=== PATIENT | female | born 1960 | race Caucasian/White ===

== ENCOUNTER 2016-11-08 22:57 | Emergency (ER) | payer MEDICAID ==
[2016-11-08] MEDS ORDERED: NS 1,000 ML IV ONE (23:04)
--- NOTE | 2016-11-08 23:06 | EDPHY ---
H & P HPI/ROS: HPI CHIEF COMPLAINT: Abdominal pain HISTORY OF PRESENT ILLNESS: This patient very pleasant 56-year-old female she denies having any significant medical history or surgical history does not take any daily medications, she is homeless, she presents by EMS to the emergency room from the homeless senior living for intermittent abdominal pain she describes as achy stabbing pain mainly located right lower quadrant right upper quadrant mid abdomen. It comes and goes. No vomiting. No diarrhea. She does admit to constipation. No fever. No history of gallstones or abdominal surgeries. She denies chest pain or shortness of breath. In route by EMS she was given 75 mcg of IV fentanyl. This improved her pain upon arrival to the emergency room she denies having any abdominal pain. She denies abdominal trauma. Past Medical History: Denies medical history Past Surgical History: Denies surgical history Social History: Smokes tobacco regularly, marijuana regularly, denies other illicit drugs or alcohol. Homeless. Family History: Noncontributory ROS REVIEW OF SYSTEMS: A comprehensive 10 point review of systems is otherwise negative aside from elements mentioned in the history of present illness. Exam Constitutional triage nursing summary reviewed, vital signs reviewed, awake/ alert. Eyes normal conjunctivae and sclera, EOMI, PERRLA. HENT normal inspection, atraumatic, moist mucus membranes, no epistaxis, neck supple/ no meningismus, no raccoon eyes. Respiratory clear to auscultation bilaterally, normal breath sounds, no respiratory distress, no wheezing. Cardiovascular rate normal, regular rhythm, no murmur, no edema, distal pulses normal. Gastrointestinal soft, mild tender palpation right upper quadrant also mild tender palpation right lower quadrant , no rebound, no guarding, normal bowel sounds, no distension, no pulsatile mass. Genitourinary no CVA tenderness. Musculoskeletal no midline vertebral tenderness, full range of motion, no calf swelling, no tenderness of extremities, no meningismus, good pulses, neurovascularly intact. Skin pink, warm, & dry, no rash, skin atraumatic. Neurologic awake, alert and oriented x 3, AAOx3, moves all 4 extremities equally, motor intact, sensory intact, CN II-XII intact, normal cerebellar, normal vision, normal speech. Psychiatric normal mood/affect. Heme/Lymph/Immune no lymphadenopathy. Differential diagnosis includes but is not limited to and in no particular order : Bowel obstruction, appendicitis, gallbladder disease, diverticulitis, colitis , enteritis, perforated viscus, gastritis, GERD, esophagitis, urinary tract infection, pyelonephritis, kidney stones Medical Decision Making: Plan for this patient IV establishment, IV fluid bolus , abdominal blood work, CT abdomen pelvis with IV contrast rule out acute appendicitis. And re-evaluation. Re-evaluation: CT scan of the abdomen pelvis with/out contrast. The results of the study are constipated. The study was read by Dr. Barth I viewed the images myself on the PACS system. EKG interpretation by me on record in [employer] system. Impression time of EKG 2342, this is sinus rhythm rate of 69 no acute ischemic changes appreciated. Unremarkable EKG. Ultrasound of the right upper quadrant. The results of the study are negative for acute gallstones or cholecystitis, there are gallbladder polyps however below the size that needs followed up. Please see formal report.. I discussed the results of this study with the radiologist Dr. Shafer [id number]: Re-evaluation at this time. Patient is resting comfortably no acute distress. Abdomen soft nontender. No vomiting. Blood work, CT and ultrasound of her reviewed nothing acute. Unclear what caused her severe crampy right upper quadrant pain. She has no chest pain shortness of breath. EKG nonischemic negative troponin. Unremarkable blood work. Given that she appears well nontoxic her abdomen is soft nontender she is not vomiting here allowed to be discharged however she understands she should return emergency room she develops any worsening symptoms includes abdominal pain, fever, vomiting. Source: Patient, EMS Constitutional: Initial Vital Signs Temperature (C) 36.7 C 11/08/16 22:57 Heart Rate 67 11/08/16 22:57 Respiratory Rate 16 11/08/16 22:57 Blood Pressure 126/70 H 11/08/16 22:57 O2 Sat (%) 94 11/08/16 22:57 O2 Delivery Mode Room Air Allergies/Adverse Reactions: chicken derived Allergy (Verified 11/08/16 23:20) Tetanus Vaccines and Toxoid Allergy (Verified 11/08/16 23:20) Home Medications: Medication Instructions Recorded NK [No Known Home Meds] 11/08/16 Medical Decision Making - Diagnostics Imaging Results: Imaging Impressions Abdomen/Pelvis CT 11/08/16 23:04 Impression: 1. No nephrolithiasis or hydronephrosis. 2. No evidence of appendicitis. 3. Constipation. 4. No bowel obstruction or pneumoperitoneum. 5. Degenerative lumbar spine. Attention: This CT examination is specifically designed to evaluate patients who are clinically suspected of having acute obstructive uropathy. This examination does not use radiographic contrast, and as such, provides only a limited evaluation of the abdomen, pelvis and retroperitoneum. If there is further clinical suspicion for pathological conditions other than obstructive uropathy, a complete CT evaluation of the abdomen and pelvis utilizing intravenous, oral, and rectal contrast should be considered. Findings and recommendations discussed with Emergency Department physician, Elias Weems MD at 2340 hour, 11/08/2016. Final report concurs with initial preliminary interpretation. - Data Points Laboratory Results: Laboratory Results 11/08/16 23:10 11/08/16 23:10 11/09/16 11/08/16 11/08/16 00:40 23:10 23:10 WBC RBC Hgb Hct MCV MCH MCHC RDW Plt Count MPV Neut % (Auto) Lymph % (Auto) Letcher % (Auto) Eos % (Auto) Baso % (Auto) Nucleat RBC Rel Count Absolute Neuts (auto) Absolute Lymphs (auto) Absolute Monos (auto) Absolute Eos (auto) Absolute Basos (auto) Absolute Nucleated RBC Immature Gran % Immature Gran # PT 12.6 SEC SEC (12.0-15.0) INR 0.95 (0.83-1.16) APTT 26.1 SEC SEC (23.0-38.0) VBG Lactic Acid Sodium 144 mEq/L mEq/L (134-144) Potassium 4.3 mEq/L mEq/L (3.5-5.2) Chloride 103 mEq/L mEq/L (97-110) Carbon Dioxide 29 mEq/l mEq/l (22-31) Anion Gap 12 mEq/L mEq/L (8-16) BUN 24 mg/dL H mg/dL (7-23) Creatinine 1.1 mg/dL H mg/dL (0.6-1.0) Estimated GFR 52 Glucose 86 mg/dL mg/dL (70-100) Calcium 9.5 mg/dL mg/dL (8.5-10.4) Total Bilirubin 0.7 mg/dL mg/dL (0.1-1.4) Conjugated Bilirubin 0.3 mg/dL mg/dL (0.0-0.5) Unconjugated Bilirubin 0.4 mg/dL mg/dL (0.0-1.1) AST 33 IU/L IU/L (14-46) ALT 36 IU/L IU/L (9-52) Alkaline Phosphatase 154 IU/L H IU/L (38-126) Troponin I < 0.012 ng/mL ng/mL (0-0.034) Total Protein 8.0 g/dL g/dL (6.3-8.2) Albumin 4.5 g/dL g/dL (3.5-5.0) Lipase 107.0 IU/L IU/L (23-300) Urine Color YELLOW Urine Appearance CLEAR Urine pH 6.0 (5.0-7.5) Ur Specific [place] 1.020 (1.002-1.030) Urine Protein NEGATIVE (NEGATIVE) Urine Ketones NEGATIVE (NEGATIVE) Urine Blood 1+ H (NEGATIVE) Urine Nitrate NEGATIVE (NEGATIVE) Urine Bilirubin NEGATIVE (NEGATIVE) Urine Urobilinogen NEGATIVE EU EU (0.2-1.0) Ur Leukocyte Esterase NEGATIVE (NEGATIVE) Urine RBC 3-5 /hpf H /hpf (0-3) Urine WBC NONE SEEN /hpf /hpf (0-3) Ur Epithelial Cells NONE SEEN /lpf /lpf (NONE-1+) Urine Mucus TRACE /lpf /lpf (NONE-1+) Urine Glucose NEGATIVE (NEGATIVE) 11/08/16 11/08/16 23:10 23:10 WBC 10.05 10^3/uL H 10^3/uL (3.80-9.50) RBC 5.09 10^6/uL 10^6/uL (4.18-5.33) Hgb 15.6 g/dL g/dL (12.6-16.3) Hct 47.4 % H % (38.0-47.0) MCV 93.1 fL fL (81.5-99.8) MCH 30.6 pg pg (27.9-34.1) MCHC 32.9 g/dL g/dL (32.4-36.7) RDW 12.9 % % (11.5-15.2) Plt Count 238 10^3/uL 10^3/uL (150-400) MPV 9.3 fL fL (8.7-11.7) Neut % (Auto) 68.9 % % (39.3-74.2) Lymph % (Auto) 22.3 % % (15.0-45.0) Letcher % (Auto) 6.8 % % (4.5-13.0) Eos % (Auto) 1.3 % % (0.6-7.6) Baso % (Auto) 0.4 % % (0.3-1.7) Nucleat RBC Rel Count 0.0 % % (0.0-0.2) Absolute Neuts (auto) 6.93 10^3/uL H 10^3/uL (1.70-6.50) Absolute Lymphs (auto) 2.24 10^3/uL 10^3/uL (1.00-3.00) Absolute Monos (auto) 0.68 10^3/uL 10^3/uL (0.30-0.80) Absolute Eos (auto) 0.13 10^3/uL 10^3/uL (0.03-0.40) Absolute Basos (auto) 0.04 10^3/uL 10^3/uL (0.02-0.10) Absolute Nucleated RBC 0.00 10^3/uL 10^3/uL (0-0.01) Immature Gran % 0.3 % % (0.0-1.1) Immature Gran # 0.03 10^3/uL 10^3/uL (0.00-0.10) PT INR APTT VBG Lactic Acid 1.9 mmol/L mmol/L (0.7-2.1) Sodium Potassium Chloride Carbon Dioxide Anion Gap BUN Creatinine Estimated GFR Glucose Calcium Total Bilirubin Conjugated Bilirubin Unconjugated Bilirubin AST ALT Alkaline Phosphatase Troponin I Total Protein Albumin Lipase Urine Color Urine Appearance Urine pH Ur Specific [place] Urine Protein Urine Ketones Urine Blood Urine Nitrate Urine Bilirubin Urine Urobilinogen Ur Leukocyte Esterase Urine RBC Urine WBC Ur Epithelial Cells Urine Mucus Urine Glucose Departure - Departure Disposition: Home, Routine, Self-Care Clinical Impression: Abdominal pain Qualifiers: Abdominal location: right upper quadrant Qualified Code(s): R10.11 - Right upper quadrant pain Condition: Good Instructions: Acute Abdominal Pain (ED) Additional Instructions: 1. Trigg diet for next 24-48 hours. 2. Return emergency room if develops worsening abdominal pain fever vomiting. Referrals: Patient,NotPresent [Unknown] - As per Instructions
[2016-11-08 23:23] VITALS: RESP 16; O2SAT 94
[2016-11-08 23:25] LABS: % IMMATURE GRANULYOCYTES 0.3 % (0.0-1.1); ABSOLUTE IMMATURE GRANULOCYTES 0.03 10^3/uL (0.00-0.10); ADD DIFF? NO; ADD MORPH? NO; ADD SCAN? NO; ATYPICAL LYMPHOCYTE FLAG 0 (0-99); FRAGMENT RBC FLAG 0 (0-99); HEMATOCRIT 47.4 % (38.0-47.0); HEMOGLOBIN 15.6 g/dL (12.6-16.3); LEFT SHIFT FLG 0 (0-99); LIPEMIA HEMOLYSIS FLAG 80 (0-99); MEAN CELL HEMOGLOBIN 30.6 pg (27.9-34.1); MEAN CELL HEMOGLOBIN CONCENTR. 32.9 g/dL (32.4-36.7); MEAN CELL VOLUME 93.1 fL (81.5-99.8); MEAN PLATELET VOLUME 9.3 fL (8.7-11.7); PLATELET CLUMPS FLAG 10 (0-99); PLATELET COUNT 238 10^3/uL (150-400); RED BLOOD CELL COUNT 5.09 10^6/uL (4.18-5.33); RED CELL DISTRIBUTION WIDTH 12.9 % (11.5-15.2)
[2016-11-08 23:37] LABS: ALANINE AMINOTRANSFERASE 36 IU/L (9-52); ALBUMIN 4.5 g/dL (3.5-5.0); ALKALINE PHOSPHATASE 154 IU/L (38-126); ANION GAP 12 mEq/L (8-16); ASPARTATE AMINOTRANSFERASE 33 IU/L (14-46); BILIRUBIN,TOTAL 0.7 mg/dL (0.1-1.4); BILIRUBIN-CONJUGATED 0.3 mg/dL (0.0-0.5); BILIRUBIN-UNCONJUGATED 0.4 mg/dL (0.0-1.1); CALCIUM 9.5 mg/dL (8.5-10.4); CARBON DIOXIDE 29 mEq/l (22-31); CHLORIDE 103 mEq/L (97-110); CREATININE 1.1 mg/dL (0.6-1.0); GLOMERULAR FILTRATION RATE 52; GLUCOSE 86 mg/dL (70-100); POTASSIUM 4.3 mEq/L (3.5-5.2); SODIUM 144 mEq/L (134-144)
--- NOTE | 2016-11-08 23:48 | CPEKG ---
Heart Rate: 69 RR Interval: 870 P-R Interval: 132 QRSD Interval: 76 QT Interval: 408 QTC Interval: 437 P Pearcy: 65 QRS Pearcy: 82 T Wave Pearcy: 68 EKG Severity - NORMAL ECG - EKG Impression: SINUS RHYTHM Electronically Signed By: Elias Weems 09-Nov-2016 06:52:36
[2016-11-08 23:49] LABS: TROPONIN I < 0.012 ng/mL (0-0.034)
[2016-11-09 00:16] LABS: INR 0.95 (0.83-1.16); PROTIME(PATIENT) 12.6 SEC (12.0-15.0)
[2016-11-09 00:17] LABS: APTT 26.1 SEC (23.0-38.0)
[2016-11-09 01:12] LABS: COLOR YELLOW; LEUKOCYTE ESTERASE,URINE NEGATIVE (NEGATIVE); NITRITE,URINE NEGATIVE (NEGATIVE)
[2016-11-09 01:17] LABS: MUCUS TRACE /lpf (NONE-1+)
[2016-11-09 01:19] LABS: WBC,URINE NONE SEEN /hpf (0-3)
[2016-11-09 01:45] VITALS: BP 123/65; PULSE 73; TEMP 97.9
== END 2016-11-09 01:46 | disposition home or self-care (01) ==
DX: R10.11 Right upper quadrant pain (principal); F17.290 Nicotine dependence, other tobacco product, uncomplicated

== ENCOUNTER 2016-11-29 13:34 | Emergency (ER) | payer MEDICAID ==
[2016-11-29 13:41] VITALS: RESP 20; TEMP 98.4
--- NOTE | 2016-11-29 14:50 | EDPHY ---
H & P Time Seen by Provider: 11/29/16 14:29 Smoking Status: Never smoked Constitutional: Initial Vital Signs Temperature (C) 36.9 C 11/29/16 13:38 Heart Rate 65 11/29/16 13:38 Respiratory Rate 20 11/29/16 13:38 Blood Pressure 98/53 L 11/29/16 13:38 O2 Sat (%) 95 11/29/16 13:38 O2 Delivery Mode Room Air Allergies/Adverse Reactions: chicken derived Allergy (Verified 11/29/16 13:38) Tetanus Vaccines and Toxoid Allergy (Verified 11/29/16 13:38) Home Medications: Medication Instructions Recorded NK [No Known Home Meds] 11/08/16 MDM/Departure - MDM Imaging Results: Imaging Impressions Wrist X-Ray 11/29/16 13:41 Impression: Negative for fracture. - Depart
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
[2016-11-29 15:19] VITALS: BP 126/80; PULSE 78; O2SAT 94
== END 2016-11-29 15:13 | disposition home or self-care (01) ==
DX: S63.501A Unspecified sprain of right wrist, initial encounter (principal); L03.113 Cellulitis of right upper limb; X58.XXXA Exposure to other specified factors, initial encounter
CPT/HCPCS: L3908

== ENCOUNTER 2017-12-09 17:26 | Emergency (ER) | payer MEDICAID ==
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
[2017-12-09] MEDS ORDERED: ACETAMINOPHEN 500 MG TAB PO ONE (18:44)
[2017-12-09 19:42] VITALS: BP 134/80
== END 2017-12-09 19:34 | disposition home or self-care (01) ==
LOC: EDUNIT#
DX: S86.911A Strain of unspecified muscle(s) and tendon(s) at lower leg level, right leg, initial encounter (principal); F17.200 Nicotine dependence, unspecified, uncomplicated; Y00.XXXA Assault by blunt object, initial encounter; Y99.8 Other external cause status; Y93.89 Activity, other specified
CPT/HCPCS: L1830

== ENCOUNTER 2018-07-05 19:12 | Emergency (ER) | payer MEDICAID ==
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
[2018-07-05] MEDS ORDERED: HYDROCOD/APAP 5/325 PREPACK#6 BTL TAKEHOME ONE (20:28)
[2018-07-05 20:42] VITALS: BP 118/61
== END 2018-07-05 21:06 | disposition home or self-care (01) ==
LOC: EDUNIT#
DX: S02.2XXA Fracture of nasal bones, initial encounter for closed fracture (principal); Z59.0 Homelessness; Y04.8XXA Assault by other bodily force, initial encounter; Y92.9 Unspecified place or not applicable; Y93.9 Activity, unspecified; Y99.9 Unspecified external cause status

== ENCOUNTER 2018-09-29 18:23 | Emergency (ER) | payer MEDICAID ==
--- NOTE | 2018-09-29 18:41 | EDPHY ---
General - History Smoking Status: Current every day smoker Time Seen by Provider: 09/29/18 18:26 Narrative: CLINICAL IMPRESSION: Suicidal ideations, M1 hold ASSESSMENT/PLAN: 58-year-old homeless female presents to the emergency department on an M1 hold from the walk-in center at [facility] after reporting that she was feeling suicidal. Patient had active attempted suicide by cutting her right wrist 2 days ago and relayed to me that if this did not work, she would slice her throat. She denies hallucinations and delusions. She is mildly agitated but cooperative. She denies illicit drug and alcohol use tonight and urine drug skin is clear aside from marijuana. She was medically cleared and awaiting bed placement by [facility]. Given Tylenol for headache. No focal neurological deficits. Will likely sign out to Dr. Coronado at 0100 pending bed placement DIFFERENTIAL DX: Differential includes but not limited to, acute/chronic psychosis, severe depression, suicidal or homicidal ideations, grave disability, failure to thrive , medication noncompliance, medication side effect, alcohol intoxication and illicit drug use, metabolic disturbance, electrolyte imbalance ED PROCEDURES: See lab and/or imaging results below ED COURSE: 6:30 p.m.: Patient seen and assessed by myself. Currently cooperative, mildly agitated but not aggressive, on an M1 hold by [facility] who is apparently conducting a bed search. 8:30 p.m.: Labs back. Notable for marijuana, no other drugs, alcohol 0. Patient is medically cleared. Bed search currently underway by [facility]. CHIEF COMPLAINT: M1 hold, med clearance HPI: 58-year-old homeless female presents to the emergency department from the walk- in clinic at [facility], on an M1 hold for suicidal thoughts and delusional behavior. Patient tells me she is not actively suicidal however shows me a self-inflicted right wrist laceration that occurred 2 days ago and reports to me "if that did not work and then this" followed by a movement of slicing her neck with a knife. She tells me she is not actively suicidal or homicidal. It sounds as though she has been feeling this way after learning her housing situation fell through. She denies hallucinations and delusions. She denies alcohol and illicit drugs. She does not currently take any medications. But has a reported history of anxiety. She has no physical complaints and states "there are things I have been struggling with but nothing you can help me with today". She is requesting a soda to drink. PAST MEDICAL HISTORY: History of anxiety See nurse/triage notes for additional history if applicable Pertinent Past Surgical History: None reported Family History: Noncontributory Social History: Homeless, daily smoker, states she is allergic to tetanus REVIEW OF SYSTEMS: All other systems negative Constitutional: No fever, no chills, appetite change. Eyes: No discharge, vision change ENT: No sore throat, congestion, ear pain. Cardiovascular: No chest pain, no palpitations. Respiratory: No cough, no shortness of breath. Gastrointestinal: No abdominal pain, no vomiting, diarrhea. Genitourinary: No hematuria, dysuria, flank pain, pelvic pain Musculoskeletal: No back pain, joint swelling, joint pain, myalgias. Skin: No rashes, color change. Old laceration to right volar wrist Neurological: No headache, dizziness, weakness. PHYSICAL EXAM: General Appearance: Alert, oriented, appropriate, cooperative, mildly agitated , NAD, well hydrated, non-toxic appearing, VSS, no hypoxia. HEENT: Oropharynx clear is no erythema or exudates, no tonsillar hypertrophy or asymmetry. Missing several teeth] Eyes: PERRLA, no acute vision change, nystagmus, swelling, discharge, pain or photosensitivity. Conjunctiva pink, no pallor or injection Neck: Supple, nontender, no lymphadenopathy, no midline pain, FROM, no meningismus. Respiratory: There are no retractions, lungs are clear to auscultation. Cardiac: Regular rate and rhythm, no murmurs or gallops. Gastrointestinal: [Abdomen is soft, nontender Neurological: [ Alert and oriented x 3 Skin: Old, scabbed, horizontally oriented laceration measuring approximately 3 cm is a on the volar aspect of the right wrist, self-inflicted. No signs of infection. Distal neurovascular exam intact. Musculoskeletal: Extremities are symmetrical, full range of motion, no tenderness, deformity, swelling, or erythema. Psychiatric: Patient is oriented X 3, there is no agitation. MEDICAL DECISION MAKING: Patient was seen independently. Secondary supervising physician at time of evaluation was Dr. Garcia. Diagnosis: Suicidal, M1 hold . New, requires workup Summary: See Assessment and Plan for summary of ED visit Clinical lab tests: ordered / reviewed. Decision to obtain medical records or history from someone other than the patient: No Review / Summarize previous medical records: Yes, reviewed M1 hold Discussed patient with another provider: ED attending Patient Progress: Stable at time of sign-out. (Kb Roa) 1:40 a.m.- Patient has been stable thus far. She has been accepted at [facility] in [place] for further psychiatric care. The accepting physician is Dr. Alanis. I have completed the EMTALA form. (Rachel Coronado) - Objective Vital Signs: Initial Vital Signs Temperature (C) 36.7 C 09/29/18 18:41 Heart Rate 81 09/29/18 18:41 Respiratory Rate 16 09/29/18 18:41 Blood Pressure 115/76 09/29/18 18:41 O2 Sat (%) 94 09/29/18 18:41 O2 Delivery Mode Room Air Allergies/Adverse Reactions: chicken derived Allergy (Verified 11/29/16 13:38) Tetanus Vaccines and Toxoid Allergy (Verified 11/29/16 13:38) Home Medications: Medication Instructions Recorded NK [No Known Home Meds] 07/05/18 Laboratory Results: Laboratory Results 09/29/18 19:10 09/29/18 19:10 09/29/18 09/29/18 09/29/18 20:20 19:10 19:10 WBC 8.42 10^3/uL 10^3/uL (3.80-9.50) RBC 4.62 10^6/uL 10^6/uL (4.18-5.33) Hgb 14.0 g/dL g/dL (12.6-16.3) Hct 40.9 % % (38.0-47.0) MCV 88.5 fL fL (81.5-99.8) MCH 30.3 pg pg (27.9-34.1) MCHC 34.2 g/dL g/dL (32.4-36.7) RDW 13.6 % % (11.5-15.2) Plt Count 210 10^3/uL 10^3/uL (150-400) MPV 9.0 fL fL (8.7-11.7) Neut % (Auto) 54.3 % % (39.3-74.2) Lymph % (Auto) 35.5 % % (15.0-45.0) [place] % (Auto) 6.9 % % (4.5-13.0) Eos % (Auto) 2.5 % % (0.6-7.6) Baso % (Auto) 0.6 % % (0.3-1.7) Nucleat RBC Rel Count 0.0 % % (0.0-0.2) Absolute Neuts (auto) 4.57 10^3/uL 10^3/uL (1.70-6.50) Absolute Lymphs (auto) 2.99 10^3/uL 10^3/uL (1.00-3.00) Absolute Monos (auto) 0.58 10^3/uL 10^3/uL (0.30-0.80) Absolute Eos (auto) 0.21 10^3/uL 10^3/uL (0.03-0.40) Absolute Basos (auto) 0.05 10^3/uL 10^3/uL (0.02-0.10) Absolute Nucleated RBC 0.00 10^3/uL 10^3/uL (0-0.01) Immature Gran % 0.2 % % (0.0-1.1) Immature Gran # 0.02 10^3/uL 10^3/uL (0.00-0.10) Sodium 139 mEq/L mEq/L (135-145) Potassium 4.0 mEq/L mEq/L (3.5-5.2) Chloride 104 mEq/L mEq/L (97-110) Carbon Dioxide 27 mEq/l mEq/l (22-31) Anion Gap 8 mEq/L mEq/L (6-14) BUN 12 mg/dL mg/dL (7-23) Creatinine 0.7 mg/dL mg/dL (0.6-1.0) Estimated GFR > 60 Glucose 99 mg/dL mg/dL (70-100) Calcium 9.2 mg/dL mg/dL (8.5-10.4) Salicylates < 1.0 mg/dL L mg/dL (2.0-20.0) Urine Opiates Screen NEGATIVE (NEGATIVE) Acetaminophen < 10 mcg/mL L mcg/mL (10-30) Urine Barbiturates NEGATIVE (NEGATIVE) Ur Phencyclidine Scrn NEGATIVE (NEGATIVE) Ur Amphetamine Screen NEGATIVE (NEGATIVE) U Benzodiazepines Scrn NEGATIVE (NEGATIVE) Urine Cocaine Screen NEGATIVE (NEGATIVE) U Marijuana (THC) Screen NON-NEGATIVE H (NEGATIVE) Ethyl Alcohol < 10 mg/dL mg/dL (0-10) Medications Given: Discontinued Medications Acetaminophen (Tylenol) 1,000 mg PO EDNOW ONE Stop: 09/29/18 19:26 Last Admin: 09/29/18 19:50 Dose: 1,000 mg Departure - Departure Disposition: [facility] Inpatient Acute Clinical Impression: Suicidal ideation Condition: Fair Referrals: Cydney Crenshaw MD [Primary Care Provider] - As per Instructions
[2018-09-29 19:24] LABS: PLATELET COUNT 210 10^3/uL (150-400)
[2018-09-29] MEDS ORDERED: ACETAMINOPHEN 500 MG TAB PO ONE (19:25)
[2018-09-30 02:02] VITALS: BP 112/65
== END 2018-09-30 02:34 | disposition still patient (30) ==
LOC: EDUNIT#
DX: R45.851 Suicidal ideations (principal); F17.200 Nicotine dependence, unspecified, uncomplicated; Z59.0 Homelessness
CPT/HCPCS: 80305; G0480